=== PATIENT | male | born 1975 | race Caucasian/White ===

== ENCOUNTER 2017-07-17 17:53 | Emergency (ER) | payer MEDICAID, OTHER, SELFPAY ==
[2017-07-17] MEDS: ASPIRIN 81 MG CHEW TABLET PO ×3 (18:36)
[2017-07-17] MEDS: NITROGLYCERIN 0.4 MG SUBL TABLET SL ×3 (18:36)
[2017-07-17] MEDS: METOPROLOL 5 MG/5 ML VIAL IV ×9 (18:40→18:56)
[2017-07-17 18:41] LABS: BASO # 0.1 10^3/uL (0.0-0.2); BASO % 0.6 % (0.0-1.0); EOS # 0.3 10^3/uL (0.0-0.50); EOS % 2.4 % (0.0-3.0); HEMATOCRIT 44.2 % (42.0-52.0); HEMOGLOBIN 14.8 g/dl (14.0-18.0); IMMATURE GRANULOCYTE % 0.5 % (0-3.0); LYMPH # 1.8 10^3/uL (1.5-4.5); LYMPH % 16.7 % (24.0-44.0); MEAN CORPUSCULAR HEMOGLOBIN 28.7 pg (27.0-33.0); MEAN CORPUSCULAR HGB CONC 33.5 g/dl (32.0-36.5); MEAN CORPUSCULAR VOLUME 85.7 fl (80.0-96.0); MONO # 0.6 10^3/uL (0.0-0.8); MONO % 5.7 % (0.0-5.0); NEUTROPHILS # 7.9 10^3/uL (1.8-7.7); NEUTROPHILS % 74.1 % (36.0-66.0); PLATELET COUNT, AUTOMATED 248 10^3/uL (150-450); RED BLOOD COUNT 5.16 10^6/uL (4.30-6.10); WHITE BLOOD COUNT 10.6 10^3/uL (4.0-10.0)
[2017-07-17] MEDS: METOPROLOL TART 50 MG TAB PO ×3 (18:45)
[2017-07-17] MEDS: NS 1,000 ML IV ×3 (18:49)
[2017-07-17 18:50] LABS: ALBUMIN 3.9 GM/DL (3.2-5.2); ALKALINE PHOSPHATASE 83 U/L (45-117); ALT/SGPT 24 U/L (12-78); ANION GAP 9 MEQ/L (8-16); AST/SGOT 21 U/L (7-37); BILIRUBIN,DIRECT < 0.1 MG/DL (0.0-0.2); BILIRUBIN,TOTAL 0.3 MG/DL (0.2-1.0); BLOOD UREA NITROGEN 13 MG/DL (7-18); CALCIUM LEVEL 8.6 MG/DL (8.5-10.1); CARBON DIOXIDE LEVEL 27 MEQ/L (21-32); CHLORIDE LEVEL 103 MEQ/L (98-107); CPK CREATINE PHOSPHOKINASE 107 U/L (39-308); CREATININE FOR GFR 1.06 MG/DL (0.70-1.30); GLOMERULAR FILTRATION RATE > 60.0 (>60); GLUCOSE, FASTING 174 MG/DL (70-100); LIPASE 210 U/L (73-393); POTASSIUM SERUM 3.7 MEQ/L (3.5-5.1); SODIUM LEVEL 139 MEQ/L (136-145); TOTAL PROTEIN 6.9 GM/DL (6.4-8.2); TROPONIN I < 0.02 NG/ML (< 0.10)
[2017-07-17 18:52] LABS: INR 1.08; PROTHROMBIN TIME 14.2 SECONDS (12.4-14.5)
[2017-07-17 18:56] LABS: CK-MB VALUE MASS 1.9 NG/ML (0.0-3.6); MB/CK RELATIVE INDEX 1.77 (< OR =4); NT-PRO BNP 105 PG/ML (<125)
[2017-07-17] MEDS: LISINOPRIL 40 MG TAB PO ×3 (19:30)
[2017-07-17] MEDS: LABETALOL HCL 100 MG/20 ML VIAL IV ×6 (19:31→20:33)
[2017-07-17 21:42] LABS: ESTIMATED AVERAGE GLUCOSE 126 MG/DL (60-110)
[2017-07-17 22:41] LABS: CPK CREATINE PHOSPHOKINASE 85 U/L (39-308); TROPONIN I 0.02 NG/ML (< 0.10)
[2017-07-17 22:42] LABS: CK-MB VALUE MASS 1.6 NG/ML (0.0-3.6); MB/CK RELATIVE INDEX 1.88 (< OR =4)
[2017-07-17] MEDS: NITROGLYCERIN 2% OINT 1 GM *U/D* PKT TOP ×3 (23:10)
== END 2017-07-18 00:11 | disposition left against medical advice (07) ==
LOC: M ED 07-18 00:11
DX: I20.0 Unstable angina (principal); I10 Essential (primary) hypertension; Z82.49 Family history of ischemic heart disease and other diseases of the circulatory system; Z88.0 Allergy status to penicillin; F17.210 Nicotine dependence, cigarettes, uncomplicated
CPT/HCPCS: 71045

== ENCOUNTER 2017-10-10 08:59 | Day surgery (SDC) | payer OTHER ==
[2017-10-10] MEDS: NS 1,000 ML IV (09:15)
[2017-10-10] MEDS ORDERED: PROPOFOL 200 MG/20 ML VIAL As Ordered ×2 (11:55→12:01)
== END 2017-10-10 12:45 | disposition home or self-care (01) ==
LOC: M OPP 12:45
DX: K64.4 Residual hemorrhoidal skin tags (principal); K64.8 Other hemorrhoids; D12.2 Benign neoplasm of ascending colon; R19.7 Diarrhea, unspecified; K92.1 Melena; I11.9 Hypertensive heart disease without heart failure; R51 Headache; R06.83 Snoring; Z79.82 Long term (current) use of aspirin; Z79.899 Other long term (current) drug therapy; Z88.0 Allergy status to penicillin; F17.210 Nicotine dependence, cigarettes, uncomplicated; Z87.19 Personal history of other diseases of the digestive system
CPT/HCPCS: 45385

== ENCOUNTER → 2018-04-20 | Outpatient (CLI) | payer OTHER | LOC: M CARPUL 09:59 | DX: R06.09 Other forms of dyspnea (principal) | CPT/HCPCS: 94010 ==

== ENCOUNTER → 2018-07-02 | Outpatient (CLI) | payer OTHER ==
[~2018-07-02] MED LIST: ASPI1TAB PO; ATOR1TAB21 PO; LISI20TA3 PO
--- NOTE | 2018-07-03 11:46 | REP ---
Clinical: Acute left shoulder pain. Technique: Internal rotation, external rotation, and Y view of the left shoulder. Findings: Acromioclavicular and glenohumeral joints are intact and normal. No acute fracture dislocation. No overt osteoarthritic degenerative changes. Subacromial space is normal. Impression: Age-appropriate left shoulder radiographs. If the patient remains symptomatic consider MRI for further investigation. Electronically Signed by Krystian Ace MD 07/03/2018 11:38 A
== END ==
LOC: M RAD 14:39
PROVIDERS: ATTEND Physician Assistant
DX: M25.512 Pain in left shoulder (principal)

== ENCOUNTER → 2018-07-02 | Outpatient (REF) | payer OTHER ==
[2018-07-02 12:34] LABS: ALT/SGPT 54 U/L (12-78); BILIRUBIN,TOTAL 0.7 MG/DL (0.2-1.0); BLOOD UREA NITROGEN 15 MG/DL (7-18); CARBON DIOXIDE LEVEL 30 MEQ/L (21-32); CHLORIDE LEVEL 100 MEQ/L (98-107); CHOLESTEROL LEVEL 143 MG/DL (<200); CHOLESTEROL RISK RATIO 5.296 (<5); CREATININE FOR GFR 1.13 MG/DL (0.70-1.30); GLOMERULAR FILTRATION RATE > 60.0 (>60); GLUCOSE, FASTING 92 MG/DL (70-100); HDL CHOLESTEROL 27 MG/DL (>40); LDL CHOLESTEROL 70 MG/DL (<100); NON-HDL-C 116 MG/DL; POTASSIUM SERUM 4.1 MEQ/L (3.5-5.1); SODIUM LEVEL 136 MEQ/L (136-145); TOTAL PROTEIN 7.5 GM/DL (6.4-8.2); TRIGLYCERIDES LEVEL 230 MG/DL (<150)
[2018-07-02 16:43] LABS: MALB URINE SIEMENS 10.9 MG/L; MAU/CREAT RATIO 5.5 MCG/MG (0.0-30.0)
== END ==
LOC: M SFHCPLAZ 10:03
PROVIDERS: ATTEND Physician Assistant
DX: E78.5 Hyperlipidemia, unspecified (principal)

== ENCOUNTER → 2018-10-03 | Outpatient (CLI) | payer OTHER ==
[~2018-10-03] MED LIST changes: -ASPI1TAB PO; +ASPI81TA26 PO
--- NOTE | 2018-10-06 09:43 | REP ---
MRI LEFT SHOULDER: TECHNIQUE: Axial T2 fat sat, gradient echo, sagittal oblique T2 fat sat, coronal oblique T1, T2 fat sat. There is scattered ill-defined high signal on T2-weighted images involving the supraspinatus tendon compatible with moderate tendinopathy. There is confluent increased signal along the bursal surface of the tendon anteriorly suggesting a partial bursal surface tear. An oval cystic structure in the muscle of the subscapularis measures approximately 1.4 x 0.7 cm having the appearance of intramuscular ganglion cyst. Another cystic structure along the anterior aspect of the subscapularis musculotendinous junction measures approximately 6 mm in diameter. Acromion is type 2. Biceps tendon is within the bicipital groove with no tenosynovitis. There is no Hill-Sachs deformity. The deltoid muscle demonstrates no abnormal signal. There is fraying of the biceps labral complex. I do not see a discrete labral tear. No paralabral cyst is seen. There is mild subchondral marrow edema in the distal end of the clavicle. There is no joint effusion. There is mild chondromalacia of the glenohumeral joint. IMPRESSION: Mild to moderate hypertrophic change of the acromioclavicular joint with subchondral marrow edema and cystic change in the distal clavicle. Downward sloping of the type 2 acromion. Moderate tendinopathy of the supraspinatus tendon with likely a partial bursal surface tear at the anterior aspect of the supraspinatus tendon. Two ganglion cysts are seen associated with the subscapularis muscle and musculotendinous junction. Fraying of the biceps labral complex without a discrete labral tear. Electronically Signed by Dontrell Padilla MD 10/06/2018 11:03 A
== END ==
LOC: M RAD 09:08
PROVIDERS: ATTEND Orthopaedic Surgery Sports Medicine
DX: M25.512 Pain in left shoulder (principal); M67.412 Ganglion, left shoulder; M94.212 Chondromalacia, left shoulder